=== PATIENT | female | born 1980 | race Caucasian/White ===

== ENCOUNTER → 2016-09-28 | Outpatient (CLI) | payer OTHER ==
--- NOTE | 2016-09-28 09:33 | US ---
September 28, [address] Adam, Thank you for requesting consultation and a detailed obstetrical ultrasound for Mrs. Truong second chanel to advanced maternal age. As you know, Julianne is a 36 year old G 1, P 0 . Her due date is 02/14 by first trimester ultrasound. Her current gestational age based on this dating is 20 weeks 1 da ys. Her genetic screening revealed a reassuring NIPT and MSAFP screening. 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 The f ather of the was tested for carrier status of Gaucher and he is negative. ULTRASOUND Number of fetuses: 1 Placental location: Posterior; no evidence of previa Placental cord insertion: Intraplacental presentation: Cephalic Cervix: 3.6 cm viewed transabdominally Maximum Vertical Pocket: 3.6 cm The adnexa were evaluated. No pathology was seen. Right ovary is visualized with persistent corpus luteum. The ovary measures 3.2 x 2.0 x 2.2 cm. The c orpus luteum measures 1.8 x 1.6 x 1.2 cm. Left ovary is visualized and appears normal. It measures 2.5 x 1.7 x 2.3 cm. MEASUREMENTS: Biparietal diameter: 45 mm 19 weeks, 4 days Head circumference: 167 mm 19 weeks, 3 days Abdominal circumference: 138 mm 19 weeks, 2 days Femur length: 31 mm 19 weeks, 6 days Humerus length: 30 mm 19 weeks, 5 days Transcerebellar diameter: 20 mm 19 weeks, 0 days Average ultrasound age: 19 weeks, 4 days Estimated weight: 293 gm weight percentile: 14% ANATOMY Supratentorial brain: Normal including views of the falx, cavum septum pellucidum and choroids Lateral Ventricle: Normal, measuring 5.2 mm Posterior fossa: Normal including the cerebellum and cisterna magna Spine: Normal Nuchal fold: 3.2 mm normal Face: Normal views of the lip and nose area Profile: Normal Palate: Normal appearance of the alveolar ridge Cardiac Exam: Four chamber view of the heart: Normal including intraventricular septum Left Ventricular Outflow Tract: Normal Right Ventricular Outflow Tract: Normal 3 Vessel View: Normal Tracheal View: Normal Aortic Arch: Normal Ductal Arch: Normal SVC/IVC: Normal Heart Rate: 147 bpm Diaphragm: No overt abnormalities have been detected Stomach: Normal Umbilical cord insertion: Normal Right kidney: Normal Left kidney: Normal Bladder: Normal Number of cord vessels: Three Upper extremities: Normal including the number, and architecture Lower extremities: Normal including the number and architecture Gender: Female IMPRESSION: 1. Intrauterine at 20 w 1 d, CARLITOS of 02/14/17. This is consistent with her previously esta blished dates. 2. Today's sonogram reveals a normal appearing fetus. 3. Cervical length measures 3.6 cm, and is without evidence of insufficiency. 4. Advanced maternal age RECOMMENDATIONS: I was pleased to review today's ultrasound with your patient. I have reassured her that the gr owth and amniotic fluid volume are appropriate for this gestational age. The detailed anatomic surve y did not reveal any overt abnormalities. Julianne is aware that ultrasound is a screening tool and cannot provide definitive genetic diagnosis. Should she desire definitive genetic diagnosis, she would need to have a genetic amniocentesis performed. After our discussion regarding the procedure, benefits, risks, alternatives, and limitations to the information received Julianne DECLINES amniocente sis. Future ultrasound and consultation is left to your clinical discretion. Thank you for allowing me the opportunity to consult and evaluate your patient. Should you have any questions or concerns please do not hesitate to contact me. This visit was approximately 15 minutes in length with 10 minutes spent in direct face to face consultation reviewing aneuploidy screening ve rsus definitive genetic diagnosis. Sincerely, Bren Solomon MD Call Or Contact Centre Manager Maternal Medicine Department of Obstetrics & Gynecology [facility]
--- NOTE | 2016-09-28 11:15 | US ---
OB Sonogram History: CARLITOS February 14, 2017, 20 weeks 1 day, check growth and anatomy, advanced maternal age Comparison: August 03, 2016 Findings: The fetus is in vertex presentation. The cervix is closed measuring 3.6 cm transabdominally . The placenta is posterior. The posterior margin of the placenta is 3.2 cm above the internal os. Th ere is no evidence for placental prematurity. The umbilical cord inserts normally on the placenta. Ma ximum amniotic fluid pocket = 3.6 cm. Both maternal ovaries are visualized and appear normal with a s mall simple cyst in the right ovary. The visualized intracranial contents, spine and face look normal. Fluid is identifi ed in the stomach and urinary bladder. The heart is 4 chambered and has an intact i nterventricular septum. The right and left ventricular outflow tracks look normal. heart rate = 1 47 bpm. The umbilical cord has 3 vessels and are normal insertion site. The renal region loo ks normal. The extremities are present. BPD = 45 mm = 19 weeks 4 days Head circumference = 167 mm = 19 weeks 3 days Abdominal circumference = 138 mm = 19 weeks 2 days Femur length = 32 mm = 19 weeks 6 days Humeral length = 30 mm = 19 weeks 5 days Cerebellar width = 19.6 mm = 19 weeks 0 days Cisterna magna = 3.9 mm Estimated weight = 14 percentile Average gestational age by ultrasound = 19 weeks 4 days CARLITOS by ultrasound February 18, 2017 Impression: 1. Size consistent with dates. 2. No anatomic abnormality identified. This report should be read in conjunction with a consultation by Dr. Josiah Banda.
== END ==
LOC: FIMAGING 07:55
PROVIDERS: ATTEND Obstetrics & Gynecology
DX: O09.512 Supervision of elderly primigravida, second trimester (principal); Z3A.20 20 weeks gestation of pregnancy

== ENCOUNTER 2016-11-13 11:33 | Observation (INO) | payer OTHER | END 2016-11-13 12:18 | disposition home or self-care (01) | LOC: FLD 11:33 | PROVIDERS: ADMIT Midwife; ATTEND Midwife | DX: O36.8120 Decreased fetal movements, second trimester, not applicable or unspecified (principal); Z3A.26 26 weeks gestation of pregnancy | CPT/HCPCS: 59025; G0378 ==

== ENCOUNTER → 2016-12-30 | Outpatient (CLI) | payer OTHER | LOC: FIMAGING 07:23 | PROVIDERS: ATTEND Obstetrics & Gynecology | DX: Z36 Encounter for antenatal screening of mother (principal); O09.513 Supervision of elderly primigravida, third trimester; Z3A.33 33 weeks gestation of pregnancy ==

== ENCOUNTER 2017-01-28 11:10 | Inpatient (IN) | payer OTHER ==
[2017-01-28] MEDS ORDERED: OXYTOCIN/RINGERS LACTATE 1,000 ML IV PRN (11:23)
[2017-01-28] MEDS ORDERED: EPSOM SALT 454 GM TP PRN (11:23)
[2017-01-28] MEDS ORDERED: TERBUTALINE SULFATE 1 MG/ML VIAL IV PRN (11:23)
[2017-01-28] MEDS ORDERED: LR 1,000 ML IV PRN (11:23)
[2017-01-28] MEDS ORDERED: OLIVE OIL 118 ML BTL MISC PRN (11:23)
[2017-01-28 11:49] LABS: % IMMATURE GRANULYOCYTES 0.7 % (0.0-1.1); ABSOLUTE IMMATURE GRANULOCYTES 0.08 10^3/uL (0.00-0.10); ADD DIFF? NO; ADD MORPH? NO; ADD SCAN? NO; ATYPICAL LYMPHOCYTE FLAG 0 (0-99); FRAGMENT RBC FLAG 0 (0-99); HEMOGLOBIN 13.5 g/dL (12.6-16.3); LEFT SHIFT FLG 0 (0-99); LIPEMIA HEMOLYSIS FLAG 90 (0-99); MEAN CELL HEMOGLOBIN 31.9 pg (27.9-34.1); MEAN CELL HEMOGLOBIN CONCENTR. 34.6 g/dL (32.4-36.7); MEAN CELL VOLUME 92.2 fL (81.5-99.8); MEAN PLATELET VOLUME 10.1 fL (8.7-11.7); PLATELET CLUMPS FLAG 0 (0-99); PLATELET COUNT 236 10^3/uL (150-400); RED BLOOD CELL COUNT 4.23 10^6/uL (4.18-5.33); RED CELL DISTRIBUTION WIDTH 13.4 % (11.5-15.2)
[2017-01-28] MEDS ORDERED: PHENYLEPHRINE HCL 100 MCG/ML SYR ONE (12:08)
[2017-01-28] MEDS ORDERED: BUPIVACAINE 0.25% 30 ML SDV ONE (12:08)
[2017-01-28] MEDS ORDERED: fentaNYL 2MCG/ML/BUP 0.1% RTU 100 ML BAG EP ONE (12:08)
[2017-01-28] MEDS ORDERED: AMMONIA AROMATIC 1 EACH AMP IH ONE (12:24)
[2017-01-28] MEDS ORDERED: OLIVE OIL 118 ML BTL ONE (12:24)
[2017-01-28] MEDS ORDERED: LIDOCAINE 1% 300 MG/30 ML SDV ONE (12:24)
[2017-01-28] MEDS ORDERED: TERBUTALINE SULFATE 1 MG/ML VIAL ONE (12:25)
[2017-01-28] MEDS ORDERED: OXYTOCIN 10 UNIT/ML VIAL ONE (12:25)
[2017-01-28] MEDS ORDERED: MISOPROSTOL 200 MCG TAB ONE (12:25)
--- NOTE | 2017-01-28 12:32 | PDGENHP ---
History and Physical - Chief Complaint 37 y.o. at 37 5/7 weeks in active labor - History of Present Illness 37 y.o. at 37 5/7 weeks in active labor. History Information - Allergies/Home Medication List Allergies/Adverse Reactions: No Known Allergies Allergy (Unverified 05/03/15 20:29) Home Medications: IRON,CARBONYL [IRON] 45 mg PO DAILY 11/13/16 [Last Taken Unknown] Vit27&Calcium/Iron/FA [ Rx 1 Tablet (RX)] 1 each PO DAILY 11/13 [Last Taken 1 Day Ago] Sennosides [Senokot] 1 tab PO BID 11/13/16 [Last Taken Unknown] I have personally reviewed and updated: family history, medical history, social history, surgical history Past Medical History: hx of hip issues - Surgical History Reports: no pertinent surgical hx - Social History Smoking Status: Former smoker Alcohol Use: None Drug Use: None Review of Systems ROS: 10pt was reviewed & negative except for what was stated in HPI & below Constitutional: Reports: no symptoms EENMT: Reports: no symptoms Cardiac: Reports: no symptoms Respiratory: Reports: no symptoms Gastrointestinal: Reports: no symptoms Genitourinary: Reports: no symptoms Muscolosketal: Reports: no symptoms Skin: Reports: no symptoms Neurological: Reports: no symptoms Hematologic/Lymphatic: Reports: no symptoms Immunologic/Allergy: Reports: no symptoms Physical Exam Constitutional: uncomfortable Cardiovascular: regular rate and rhythym, no murmur, rub, or gallop Respiratory: no respiratory distress Gastrointestinal: soft, non-tender abdomen, no palpable masses Skin: warm, normal color Musculoskeletal: full muscle strength, no muscle tenderness Neurologic: AAOx3 Psychiatric: interacting appropriately Lab Data & Imaging Review 01/28/17 11:35 WBC 11.83 10^3/uL (3.80-9.50) H 01/28/17 11:35 RBC 4.23 10^6/uL (4.18-5.33) 01/28/17 11:35 Hgb 13.5 g/dL (12.6-16.3) 01/28/17 11:35 Hct 39.0 % (38.0-47.0) 01/28/17 11:35 MCV 92.2 fL (81.5-99.8) 01/28/17 11:35 MCH 31.9 pg (27.9-34.1) 01/28/17 11:35 MCHC 34.6 g/dL (32.4-36.7) 01/28/17 11:35 RDW 13.4 % (11.5-15.2) 01/28/17 11:35 Plt Count 236 10^3/uL (150-400) 01/28/17 11:35 MPV 10.1 fL (8.7-11.7) 01/28/17 11:35 Neut % (Auto) 73.9 % (39.3-74.2) 01/28/17 11:35 Lymph % (Auto) 18.3 % (15.0-45.0) 01/28/17 11:35 Thurston % (Auto) 5.9 % (4.5-13.0) 01/28/17 11:35 Eos % (Auto) 0.9 % (0.6-7.6) 01/28/17 11:35 Baso % (Auto) 0.3 % (0.3-1.7) 01/28/17 11:35 Nucleat RBC Rel Count 0.0 % (0.0-0.2) 01/28/17 11:35 Absolute Neuts (auto) 8.75 10^3/uL (1.70-6.50) H 01/28/17 11:35 Absolute Lymphs (auto) 2.16 10^3/uL (1.00-3.00) 01/28/17 11:35 Absolute Monos (auto) 0.70 10^3/uL (0.30-0.80) 01/28/17 11:35 Absolute Eos (auto) 0.11 10^3/uL (0.03-0.40) 01/28/17 11:35 Absolute Basos (auto) 0.03 10^3/uL (0.02-0.10) 01/28/17 11:35 Absolute Nucleated RBC 0.00 10^3/uL (0-0.01) 01/28/17 11:35 Immature Gran % 0.7 % (0.0-1.1) 01/28/17 11:35 Immature Gran # 0.08 10^3/uL (0.00-0.10) 01/28/17 11:35 Assessment & Plan Assessment: 37 y.o. at 37 5/7 weeks in active labor. VSS_ afebrile NST- reactive CAT I Plan: RENAN per patient request. SVE with possible AROM Continuous VS and EFM per protocol Anticipate .
--- NOTE | 2017-01-28 12:35 | OBPROG ---
OBG Labor Progress Note Assessment/Plan: Assessment: 37 y.o. at 37 5/7 weeks in active labor. VSS- afebrile NST- reactive CAT Plan: RENAN per patient request. SVE with possible AROM. VS and EFM per protocol. Anticipate . 01/28/17 12:32 Subjective: Appears more comfortable with RENAN in place. present at bedside and supportive. Objective: 01/28/17 11:35 [place] Current Contraction Pattern: Regular FHR (bpm): 140 FHR Pattern Variability: Moderate FHR Category: 1 Membranes: AROM Amniotic Fluid Color: Clear - Procedures Non-surgical Procedures: Amniotomy - Physical Exam General Appearance: WD/WN, alert, mild distress Estimated Weight: 2501-3400g EENT: normal ENT inspection Neck: non-tender, full range of motion, normal inspection Respiratory: lungs clear, normal breath sounds Cardiac/Chest: regular rate, rhythm Abdomen: non-tender, soft Extremities: non-tender, normal inspection Back: Normal inspection Skin: normal color, warm/dry Neuro/Psych: alert, normal mood/affect, oriented x 3 Oxytocin Orders Assessment - Pre-Induction/Augmentation Assessment Gestational Age: 37 week(s) and 4 day(s) ICD10 Worksheet Patient Problems: Problems Problem Status Onset Active labor at term Acute - ICD10 Problem Qualifiers (1) Active labor at term
[2017-01-28] MEDS ORDERED: NALOXONE HCL 0.4 MG/ML INJ IVP PRN (12:36)
[2017-01-28] MEDS ORDERED: ONDANSETRON 4 MG/2 ML VIAL IVP PRN (12:36)
[2017-01-28] MEDS ORDERED: PHENYLEPHRINE HCL 100 MCG/ML SYR IVP PRN (12:36)
[2017-01-28] MEDS ORDERED: LR 500 ML IV SCH (13:00)
[2017-01-28] MEDS ORDERED: fentaNYL 2MCG/ML/BUP 0.1% RTU 100 ML EP SCH (13:00)
[2017-01-28] MEDS ORDERED: HYDROCORTISONE 0.5% CREAM TP PRN (16:20)
[2017-01-28] MEDS ORDERED: HYDROCODONE/APAP 5/325 TAB PO PRN (16:20)
[2017-01-28] MEDS ORDERED: SIMETHICONE 80 MG TAB CHEW PO PRN (16:20)
--- NOTE | 2017-01-28 16:23 | OBDEL ---
Info Type: Vaginal GBS+: No Indications for Delivery: Spontaneous Labor Vaginal Delivery - Labor and Delivery Onset of Contractions Date: 01/28/17 Onset of Contractions Time: 08:00 Onset of Contractions Type: Spontaneous Rupture of Membranes Date: 01/28/17 Rupture of Membranes Time: 12:55 Rupture of Membranes Type: Artificial Amniotic Fluid Color: Clear Dilation Complete Date: 01/28/17 Dilation Complete Time: 15:00 Placenta Delivery Date: 01/28/17 Placenta Delivery Time: 15:59 Total Hours of Labor: 7 Non-surgical Procedures: Amniotomy Laceration: Other (Specify) (bilateral labial) Repair: 3-0, Vicryl Vaginal Sponge Count Correct: Yes Vaginal Needle Count Correct: Yes Vaginal Sweep Performed: Yes EBL: 200 Delivery Events: None Data [place] Delivery Date: 01/28/17 Delivery Time: 15:51 Sex of Infant: Female Score (1 Min): 9 Score (5 Min): 9 ICD10 Worksheet Patient Problems: Problems Problem Status Onset Active labor at term Acute - ICD10 Problem Qualifiers (1) Active labor at term
[2017-01-28] MEDS: IBUPROFEN 600 MG TAB PO PRN ×2 (17:23→23:17)
[2017-01-28 21:33] VITALS: RESP 16
[2017-01-28] MEDS: DOCUSATE SODIUM 100 MG CAP PO PRN (23:17)
[2017-01-29] MEDS: IBUPROFEN 600 MG TAB PO PRN ×4 (05:10→23:47)
--- NOTE | 2017-01-29 09:12 | OBPP ---
Progress Note Assessment/Plan: Assessment: PPD#1 s/p Rh pos, Rub imm Recovering appropriately Plan: Routine care epsom salt bath Home PPD#2 01/29/17 09:12 Subjective: Feels well, but a little sore. Ambulating, working on BF, tolerating regular diet. Voiding spontaneously though she is worried about BM Objective: 01/28/17 11:35 Patient ABO/Rh B POSITIVE 01/28/17 11:35 Temp Pulse Resp BP Pulse Ox 36.8 C 70 16 88/50 L 96 01/29/17 08:20 01/29/17 08:20 01/29/17 08:20 01/29/17 08:20 01/29/17 08:20 Gen: NAD Resp: unlabored CV: RRR Abd: soft, nontender, uterus firm below U Ext: trace edema
[2017-01-29] MEDS: DOCUSATE SODIUM 100 MG CAP PO PRN ×2 (11:24→23:47)
[2017-01-30] MEDS: IBUPROFEN 600 MG TAB PO PRN ×2 (05:30→11:52)
[2017-01-30 09:30] VITALS: BP 94/60; PULSE 70; TEMP 98; O2SAT 94
--- NOTE | 2017-01-30 11:10 | OBGCSDC ---
General Delivery Information - General Info : 2 Para: 1 Delivery Physician/CNM: Yanet Campos Labs: Patient ABO/Rh B POSITIVE 01/28/17 11:35 Hct 39.0 % (38.0-47.0) 01/28/17 11:35 Vaginal - Diagnosis Labor: Spontaneous Rupture of Membranes Type: Artificial Amniotic Fluid Color: Clear Laceration: Other (Specify) (bilateral labial) Repair: 3-0, Vicryl Delivery Events: None - Operations/Procedures Non-surgical Procedures: Amniotomy L&D Analgesia/Anesthesia Type: Epidural - Hospital Course Intrapartum: Spontaneous labor, uncomplicated : Routine pp course. RH pos, Rub imm - Delivery Non-surgical Procedures: Amniotomy L&D Analgesia/Anesthesia Type: Epidural Aston Data [place] Delivery Date: 01/28/17 Delivery Time: 15:51 CARLITOS: 03/16/17 Gestational Age: 33 week(s) and 4 day(s) Sex of Infant: Female Weight (gm): 2474 kg Score (1 Min): 8 Score (5 Min): 9 Discharge Information - Discharge Information Discharge Medications: Ibuprofen Condition: Good Instruction/Follow Up: Six Weeks Discharge Physician/CNM: Tiffany Packer
== END 2017-01-30 13:40 | disposition home or self-care (01) | DRG 775 ==
LOC: FLD 11:10 → FOB 19:35
PROVIDERS: ADMIT Midwife; ATTEND Midwife
PROC: 10E0XZZ Delivery of Products of Conception, External Approach (ICD-10-PCS; principal; 2017-01-28)
PROC: 0HQ9XZZ Repair Perineum Skin, External Approach (ICD-10-PCS; principal; 2017-01-28)
PROC: 10907ZC Drainage of Amniotic Fluid, Therapeutic from Products of Conception, Via Natural or Artificial Opening (ICD-10-PCS; principal; 2017-01-28)
DX: O70.0 First degree perineal laceration during delivery (principal); Z37.0 Single live birth; Z3A.37 37 weeks gestation of pregnancy
CPT/HCPCS: J2370; J3105

== ENCOUNTER → 2018-06-07 | Outpatient (CLI) | payer OTHER | LOC: SBRMNEURO 21:00 | PROVIDERS: ATTEND Internal Medicine Sleep Medicine | DX: G47.33 Obstructive sleep apnea (adult) (pediatric) (principal) ==